=== PATIENT | female | born 1965 | race Caucasian/White ===

== ENCOUNTER 2018-03-05 06:16 | Day surgery (SDC) | payer SELFPAY ==
[2018-03-04 16:32] VITALS: BMI 28.9
[2018-03-05] MEDS ORDERED: MIDAZOLAM HCL 2 MG/2 ML SINGLE DOSE VIAL ONE (07:05)
[2018-03-05] MEDS ORDERED: LIDOCAINE HCL/PF 2% SDV 5ML VIAL ONE (07:05)
[2018-03-05] MEDS ORDERED: DEXAMETHASONE SOD PHOSPHATE 4 MG/1 ML VIAL ONE ×2 (07:05→14:00)
[2018-03-05] MEDS ORDERED: fentaNYL CITRATE 250 MCG/5 ML VIAL ONE (07:05)
[2018-03-05] MEDS ORDERED: ONDANSETRON 4 MG/2 ML VIAL ONE ×2 (07:05→14:00)
[2018-03-05] MEDS ORDERED: PROPOFOL 20 ML ONE ×2 (07:05→14:19)
[2018-03-05] MEDS ORDERED: ROCURONIUM BROMIDE 50 MG/5 ML VIAL ONE ×3 (07:05→12:40)
[2018-03-05] MEDS ORDERED: DESFLURANE GAS 240 ML BOTTLE IH ONE (07:10)
[2018-03-05] MEDS ORDERED: ceFAZolin SODIUM 1 GM VIAL ONE ×2 (07:11→21:02)
[2018-03-05] MEDS ORDERED: HEPARIN NA (PORCINE) 5,000 UNITS/ML 1ML VIAL ONE (07:11)
[2018-03-05] MEDS ORDERED: BACITRACIN 15 GM TUBE TOPICAL OINTMENT ONE ×2 (07:37→14:29)
[2018-03-05] MEDS ORDERED: EPINEPHrine/PF 1 MG/1 ML (1:1,000) AMPULE ONE ×2 (07:37→08:36)
[2018-03-05] MEDS ORDERED: LIDOCAINE HCL 1%, 10 MG/ML (20ML VIAL) ONE (07:37)
[2018-03-05] MEDS ORDERED: SODIUM CHLORIDE 0.9% P/F 10 ML VIAL IJ ONE (09:16)
[2018-03-05] MEDS ORDERED: ceFAZolin SODIUM 1 GM VIAL IVPB ONE (09:20)
[2018-03-05] MEDS ORDERED: NEOSTIGMINE METHYLSULFATE 0.5 MG/ML - 10 ML MDV ONE (14:00)
[2018-03-05] MEDS ORDERED: GLYCOPYRROLATE 0.2 MG/1 ML VIAL ONE (14:00)
[2018-03-05] MEDS ORDERED: ONDANSETRON 4 MG/2 ML VIAL IVPB PRN (14:39)
[2018-03-05] MEDS ORDERED: LACTATED RINGERS SOLUTION 1,000 ML IV SCH (14:45)
--- NOTE | 2018-03-05 14:47 | OP ---
Operative Note - Note: Operative Date: 03/05/18 Pre-Operative Diagnosis: cosmetic Operation: liposuction to trunk with fat injection to hands, face, and butt Post-Operative Diagnosis: Same as Pre-op Surgeon: Rohith Estrada Anesthesia: General
[2018-03-05] MEDS ORDERED: PROMETHAZINE HCL 25 MG/1 ML VIAL IVPB ONE (16:00)
[2018-03-05] MEDS ORDERED: PROMETHAZINE HCL 25 MG/1 ML VIAL ONE (16:42)
[2018-03-05] MEDS: CEFAZOLIN 1 GM in DEXTROSE 5%-WATER - 50 ML IVPB SCH ×2 (17:53→21:09)
[2018-03-05] MEDS: morphine SULFATE 4 MG/ML VIAL IVPUSH PRN ×2 (19:29→23:18)
[2018-03-05] MEDS ORDERED: DEXTROSE 5%-WATER - 50 ML IVPB ONE (21:03)
[2018-03-05] MEDS: oxyCODONE HCL 5 MG TABLET PO PRN (21:05)
[2018-03-06] MEDS ORDERED: ceFAZolin SODIUM 1 GM VIAL ONE ×3 (02:29→15:04)
[2018-03-06] MEDS ORDERED: DEXTROSE 5%-WATER - 50 ML IVPB ONE ×3 (02:29→15:04)
[2018-03-06] MEDS: CEFAZOLIN 1 GM in DEXTROSE 5%-WATER - 50 ML IVPB SCH ×3 (03:11→15:08)
[2018-03-06] MEDS: oxyCODONE HCL 5 MG TABLET PO PRN ×3 (04:16→15:07)
[2018-03-06] MEDS: morphine SULFATE 4 MG/ML VIAL IVPUSH PRN (06:12)
[2018-03-06] MEDS ORDERED: HEPARIN NA (PORCINE) 5,000 UNITS/ML 1ML VIAL SQ SCH (08:00)
--- NOTE | 2018-03-06 13:03 | PN ---
Progress Note (short form) - Note Progress Note: VSS AF All tissues viable Ambulating Prone while in bed Pain is well controlled. Ok for discharge home
--- NOTE | 2018-03-06 13:09 | PN ---
Progress Note (short form) - Note Progress Note: POD #1. VSS. Pt. doing well, resting comfortably in bed. No complaints. No apparent anesthetic complications noted. Pt. to be discharged today.
[2018-03-06 15:13] VITALS: BP 107/60; PULSE 96; TEMP 99.4
--- NOTE | 2018-03-10 14:50 | OP ---
DATE OF OPERATION: 03/05/2018 PROCEDURE: Liposuction to abdomen, back, and flanks, with free fat grafting to bilateral hands, face, and bilateral buttocks. ATTENDING SURGEON: Rohith Estrada MD MECHANICAL SYSTEMS CONTROL ENGINEER: There were no assistants. ANESTHESIA: General endotracheal anesthesia. PREOPERATIVE DIAGNOSIS: Cosmetic. POSTOPERATIVE DIAGNOSIS: Cosmetic. DESCRIPTION: The patient is seen in the holding area. She is counseled on all risks, benefits, alternatives to the procedure. She is marked of areas of liposuction as well as areas of fat injections. She is in agreement. She is awake and aware of all markings as well as all potential incision sites. The patient is given 5000 units of subcutaneous heparin preoperatively. She is brought to the operating room, properly padded in all areas. She is prepped and draped in standard surgical fashion. Sequential compression stockings and LORETTA hose are applied. A Hall catheter is placed. At this point, a timeout is called. Patient, procedure, side and sites are verified. The wetting solution is a combination of 1 L of normal saline with 20 mL of 1% lidocaine plain and 1 ampule of 1:1000 epinephrine. The lidocaine is included in 3 of the bags total throughout the case. The remainder of the bags included no lidocaine. The infiltration, while the patient is in a supine position, was 2300 mL. A full 20 minutes is awaited for the hemostatic effect of the wetting solution. At this point, a SAFE liposuction technique is performed with pre and post tunneling using 4-mm exploded tip cannulas, followed by bracketing liposuction using a 4-mm Tawny tip cannula. The lipoaspirates, while in the supine position, are as follows: From the right flank, 275 mL; left flank, 300 mL; the lower abdomen, 1050 mL; the upper abdomen, 550 mL; miscellaneous through the entire anterior surface is 225 mL; for a total lipoaspirate of 2400 mL. After this, the fat is being processed and transferred into appropriate size syringes. The liposuction holes, which are in multiple locations throughout, are closed with a series of interrupted 5-0 nylon suture. The fat is transferred into 1 mL and 3 mL syringes. A 1.2 mm Shearer tip cannula is used for fat injection, first to the patient's right hand, where subcutaneous injection is performed using 8 mL of purified fat. On the left hand, 9 mL are used. A single incision is made at the distal wrist crease dorsally, which was closed with a 5-0 nylon suture. For fat injection to the face, bilateral nasojugal folds are injected from nasolabial fold incisions. These are 1-mm incisions with an 11 blade scalpel. Microdroplet technique is performed using Shearer technique. The same incisions are used for the nasolabial fold and oral commissure incisions are used for the marionette lines. The right nasojugal fold and the left nasojugal fold received 1.5 mL of fat injection each. The marionettes received 0.75 mL of fat injection each, and the nasolabial folds received 1 mL of fat injection each. These incisions were closed with a 6-0 nylon suture. The patient's drapes were removed. All the incision sites are dressed with eye patch and Tegaderm. The patient is then transferred to a stretcher in supine position and then rolled to a prone position using bilateral chest rolls and all appropriate positioning aids. Position is carefully checked by surgical nursing and anesthesia teams. She is re prepped and draped. The procedure is resumed, with a wetting solution to the back and flanks. The total infiltration is 1700 mL. A full 20 minutes is awaited for the hemostatic effect, where the same SAFE liposuction technique is then performed with pre and post tunneling. The lipoaspirate on the back is as follows: The left lower back, 500 mL; the right lower back, 400 mL; the right upper, back 250 mL; the left upper back, 150 mL; and additional miscellaneous 50 mL from the entire back. The total lipoaspirate from the back was 1350 mL. All fat is processed using a Mambu fat harvesting system, transferred into 10 mL syringes. After the serum is decanted. Using 2 mm blunt tip injection cannulas, fat is then injected into the buttocks entirely in a subcutaneous plane throughout: The injections to the right buttock, a total of 590 mL; and the right hip, total 220 mL; injection to the left buttock, total 640 mL; and the left hip, 180 mL. The endpoint is symmetric, round contour, and correction of deformities of both the hips and the buttocks. This is done through 2-mm stab wound incisions in multiple locations on the buttocks. These are all closed with 5-0 nylon suture. A 19 round Joni drain is placed through several of the liposuction portals on the back and secured in position with a 2-0 nylon suture placed to bulb suction. All liposuction holes are closed with 5-0 nylon suture, dressed with eye patches and Tegaderm. A customized compression garment with no compression to the buttocks is fashioned and placed on the patient. The patient is transferred to a supine position, awoken from anesthesia, having tolerated the procedure well, transferred to recovery without complication. Fam [id number]
== END 2018-03-06 16:35 | disposition home or self-care (01) ==
LOC: JASUSAT 06:16 → J8W 16:55 → JASUSAT 03-06 16:35
PROVIDERS: ATTEND Plastic Surgery
PROC: 0J073ZZ Alteration of Back Subcutaneous Tissue and Fascia, Percutaneous Approach (ICD-10-PCS; 2018-03-05)
PROC: 0J083ZZ Alteration of Abdomen Subcutaneous Tissue and Fascia, Percutaneous Approach (ICD-10-PCS; principal; 2018-03-05 08:00)
DX: Z41.1 Encounter for cosmetic surgery (principal)
CPT/HCPCS: 94760; J1644